=== PATIENT | male | born 2000 | race Caucasian/White ===

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

== ENCOUNTER 2022-09-01 17:58 | Outpatient (REF) | payer BC, SELFPAY ==
[2022-09-02 20:32] LABS: HIV-1/2 Ag & Ab Screen Negative (Negative)
[2022-09-03 11:08] LABS: Syphilis Serology (RPR) Negative (Negative)
[2022-09-03 13:40] LABS: Chlamydia Result Negative (Negative); GC Result Negative (Negative)
[2022-09-05 00:43] LABS: HSV 1 PCR, B Negative (Negative); HSV 2 PCR, B Negative (Negative)
== END 2022-09-01 17:59 | disposition home or self-care (01) ==
LOC: LBN 17:58
PROVIDERS: Visit Provider Nurse Practitioner Family
DX: Z20.2 Contact with and (suspected) exposure to infections with a predominantly sexual mode of transmission (principal); Z11.4 Encounter for screening for human immunodeficiency virus [HIV]; Z11.59 Encounter for screening for other viral diseases
CPT/HCPCS: 87389; 87491; 87529; 87591; 86592

== ENCOUNTER 2022-12-29 14:21 | Emergency (ER) | payer BC, SELFPAY ==
[2022-12-29 14:25] VITALS: BP 126/76; PULSE 68; RESP 15; TEMP 37.1; O2SAT 100
--- NOTE | 2022-12-29 15:31 | ED.GENADUL_ITS ---
Discharge Plan Disposition Patient Disposition: Home Condition: Stable Discharge Details Clinical Impression: Contusion of left shoulder Primary Care Provider: None,None ED Provider: Giovani Hernandez Home Meds and New Rx's Prescriptions: No Action No Known Home Meds Discharge Instructions Instructions: Contusion in Adults (ED) Additional Instructions: your xray did not show concerning findings if not better in a week follow up with your primary care provider if you feel more ill or have severe worsening pain return to the emergency department Medical Decision Making 22 yo male comes in with left shoulder pain s/p fall. HE states he was rough housing with some friends and he fell from standing onto his left shoulder last night, denies hitting head or loc. He localizes the pain to the left lateral shoulder. Ambulatory on arrival, caox4 in no distress. He has no head pain, no neck, back chest or abdomen pain. HE has tenderness to the left lateral shoulder and does have full rom though with pain when ranged beyhond 90 degrees. No pain over the clavicle, no tenderness in the humeral shaft, elbow, forearm, wrist or hand with intact distal sensation and pulses. Suspect contusion but will xray to evaluate for fracture. imaging negative, pt eloped prior to results, will have discharge instructions mailed to the patient. Differential Diagnosis Differential Diagnosis: contusion, sprain, fracture HPI General Mode of arrival: ambulatory . Date/Time Provider Initiated Documentation: 12/29/22 14:52 . Limitations to Documentation: no limitations . Information obtained by: patient . History of Present Illness 22 year old M presents to the emergency department with the chief complaint of left shoulder pain, described as mild, Patient started experiencing this day(s) (1) and it has been constant. Rest improves symptom(s), Movement worsens symptoms . Patient notes no other symptoms.. Patient did receive the following treatments prior to arrival, NSAID Related Data Home Medications Medication Instructions Recorded Confirmed Unknown [No Known Home Meds] 11/09/20 12/29/22 Allergies Allergy/AdvReac Type Severity Reaction Status Date / Time No Known Allergies Allergy Verified 12/29/22 14:29 General Stated Complaint: Orthopedic SABA: 4 Review of Systems All systems reviewed & are unremarkable except as noted in HPI and below Constitutional Constitutional: Denies chills, Denies fever(s) and Denies weakness Cardiovascular Cardiovascular: Denies chest pain and Denies dyspnea Respiratory Respiratory: Denies cough and Denies dyspnea Gastrointestinal Gastrointestinal: Denies abdominal pain, Denies nausea and Denies vomiting Musculoskeletal Musculoskeletal: Denies joint swelling Neurologic Neurologic: Denies weakness PFSH All Active Problems (Updated 12/29/22 @ 15:55 by Giovani Hernandez MD) Finger laceration (Acute) Contusion of left shoulder (Acute) T12 compression fracture (Acute) Anger reaction (Acute 10/20/12) Asthma, cough variant (Acute 02/25/12) Attention deficit hyperactivity disorder, combined type (Acute 10/20/12) Pediatric body mass index (BMI) of 5th percentile to less than 85th percentile for age (Acute 12/24/16) Routine child health exam (Acute 09/22/11) Medical History ADHD (attention deficit hyperactivity disorder) Asthma Asthma, exercise induced (01/29/12) Learning difficulty IEP at school Family History Mother No problems noted. Father , Suicide No problems noted. Other Heart disease Uncle had [place] in 40's, . Brother , suicide No problems noted. Social History Smoking/Tobacco Use Status: Never Smoking risk assessment performed?: Yes Alcohol Intake: never Drug use: Never Substance use type: does not use Housing: house Do you feel safe at home: Yes Do you feel safe in your relationship?: Yes Exam Const General: no acute distress Orientation: alert HENMT Head: normal to inspection Ears: external ears normal General nose exam: external nose normal Mouth: moist mucous membranes Eyes General: appearance normal, both eyes and all related structures Neck Neck: normal visual inspection Resp Effort & Inspection: normal respiratory effort and able to speak in complete sentences Cardio Rate: regular rate Skin General skin exam: no rashes or lesions noted Neuro General: patient alert and patient oriented x3 Extrem General: normal to inspection, full ROM and capillary refill normal Psych Mental Status: mental status grossly normal Course Vital Signs Vital signs: Vital Signs Temperature 37.1 C 12/29/22 14:25 Pulse 68 12/29/22 14:25 Respiratory Rate 15 12/29/22 14:25 Blood Pressure 126/76 12/29/22 14:25 Pulse Oximetry 100 12/29/22 14:25 Temperature 37.1 C 12/29/22 14:25 Temperature Source Temporal Artery Scan 12/29/22 14:25 Pulse 68 12/29/22 14:25 Respiratory Rate 15 12/29/22 14:25 Respiratory Effort Normal 12/29/22 14:27 Blood Pressure 126/76 12/29/22 14:25 Blood Pressure Position Sitting 12/29/22 14:25 Pulse Oximetry 100 12/29/22 14:25 Oxygen Delivery Method Room Air 12/29/22 14:25 Oxygen Flow Rate 0 12/29/22 14:25 Pain Level 5 12/29/22 14:27 PAWSS Have you Been Recently Intoxicated or Drunk Within the Last 30 days?: Yes Have you Ever Experienced Previous Episodes of Alcohol Withdrawal?: No Have you ever Experienced Withdrawal Seizures?: No Have you ever Experienced Delirium Tremens(DT)s?: No Have you ever undergone Alcohol Rehabilitation Treatment (i.e, inpt ot outpatient treatment programs)?: No Have you ever Experienced Blackouts?: No Have you ever Combined Alcohol with other Downers within the last 90 days?: No Have you ever Combined Alcohol with any other Substance of Abuse during the last 90 days?: No Result: 1
--- NOTE | 2022-12-29 15:53 | DI.RAD_ITS ---
Exam(s) XR SHOULDER LT COMPLETE 2+V EXAM: XR SHOULDER LT COMPLETE 2+V CLINICAL HISTORY: pain s/p fall. TECHNIQUE: 2D digital imaging was performed. COMPARISON: No exams were available for comparison FINDINGS: Four views: No evidence of fracture or dislocation nor abnormal soft tissue calcifications. Subacromial space un remarkable. Bone density normal. No osseous lesions. Glenohumeral and AC joints appear unremarkabl e. Ipsilateral clavicle unremarkable. Coracoid process unremarkable. IMPRESSION: No significant osseous findings in the shoulder. DATA REPOSITORY: RADIATION DOSE DELIVERED:
== END 2022-12-29 16:27 | disposition home or self-care (01) ==
PROVIDERS: Emergency Provider Emergency Medicine
DX: S40.012A Contusion of left shoulder, initial encounter (principal); X58.XXXA Exposure to other specified factors, initial encounter
CPT/HCPCS: 99283; 73030